=== PATIENT | female | born 1945 | race Caucasian/White ===

== ENCOUNTER 2017-01-05 10:34 | Emergency (ER) | payer OTHER ==
[~2017-01-05] VITALS: Ht 170.2 cm; Wt 96.0 kg
[~2017-01-05 10:34] MED LIST: AMLO5TAB22 PO; ASPI325T PO; CITRTAB16 PO; FEXO180 PO; HYDR-3533 PO; IBUP800T23 PO; META0.52 PO; MULT1TAB PO; OMEP20TA39 PO; TRAM50TA PO
[2017-01-05 10:44] VITALS: BP 149/88; PULSE 99; RESP 18; TEMP 99.6; O2SAT 97
--- NOTE | 2017-01-05 11:26 | PD ---
HPI . coughing x 4 days with fever Chief Complaint: Cold / Flu Symptoms Time Seen by Provider: 11:26 Travel History International Travel<30 days: No Contact w/Intl Traveler<30days: No Traveled to known affect area: No History of Present Illness HPI 71-year-old female here with complaints of coughing and fever for 4 days. She tells me that she has this every year. This time she is concerned that the fever is not going away. She is using aspirin which brings her temperature down , however it wears off within 6 hours and she has to take another dose. She admits to a dry cough. She does not have any associated sore throat, earache, rhinorrhea or shortness of breath. She denies any urinary symptoms. PFSH Past Medical History Hx Anticoagulant Therapy: Yes (ASA) Arthritis: Yes Asthma: Yes Autoimmune Disease: No Heart Rhythm Problems: No Cancer: No Cardiovascular Problems: Yes (HTN) High Cholesterol: No Chest Pain: No Congestive Heart Failure: No COPD: No Cerebrovascular Accident: No Diabetes: No Diminished Hearing: No Diverticulitis: Yes Deep Vein Thrombosis: Yes Endocrine: No Gastrointestinal Disorders: Yes (ACID REFLUX, HX OF DIVERTICULITIS, DIVERTICULOSIS) GERD: Yes Genitourinary: No Headaches: Yes Hepatitis: No Hiatal Hernia: No Hypertension: Yes Immune Disorder: No Implanted Vascular Access Dvce: Yes Kidney Stones: No Musculoskeletal: Yes (OSTEOARTHRITIS) 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) Psychiatric: No Reproductive: No Respiratory: Yes Migraines: No Renal Failure: No Seizures: No Sleep Apnea: No Thyroid Disease: No Ulcer: No Menopausal: Yes Tubal Ligation: Yes Past Surgical History Abdominal Surgery: Yes (CHOLECYSTECTOMY 1997,COLON RESECTION 2008) AICD: No Arteriovenous Shunt: No Body Medical Devices: TULIP VENA CAVA FILTER, L FOOT RECONSTRUCTION, L WRIST Cardiac Surgery: No Cholecystectomy: Yes Ear Surgery: No Endocrine Surgery: No Eye Surgery: No Genitourinary Surgery: Yes (RECTAL AND BLADDER REPAIR 2002) Gynecologic Surgery: Yes (TUBAL LIGATION 1973, HYSTERECTOMY 1979) Hysterectomy: Yes Insulin Pump: No Joint Replacement: Yes (LINDSEY KNEES) Oral Surgery: No Pacemaker: No Thoracic Surgery: No Other Surgery: Yes (RECTAL/BLADDER REPAIR) Social History Alcohol Use: Yes (BOURBON AND MARTINIS DAILY) Tobacco Use: No Substance Use: No Allergies-Medications (Allergen,Severity, Reaction): Coded Allergies: No Known Allergies (Verified , 01/05/17) Reported Meds & Prescriptions Reported Meds & Active Scripts Active Nebulizer Kit/Tubing/Mout (N/A) 1 Kit Kit 1 Kit .ROUTE DIRECTED Duoneb (Ipratropium-Albuterol Neb) 0.5-2.5 Mg/3 Ml Neb 1 Nebule INH Q6HR NEB Tessalon Perles (Benzonatate) 100 Mg Cap 100 Mg PO TID PRN Proair Hfa 8.5 GM Inh (Albuterol Sulfate) 90 Mcg/Act Aer 2 Puff INH Q6H PRN 108 mcg/actuation Prednisone 50 Mg Tab 50 Mg PO DAILY Reported Omeprazole 20 Mg Tab 20 Mg PO DAILY Centrum Silver (Multiple Vitamins W/ Minerals) 1 Tab 1 Tab PO DAILY Aspirin 325 Mg Tab 325 Mg PO Q6H Amlodipine (Amlodipine Besylate) 5 Mg Tab 5 Mg PO DAILY Review of Systems General / Constitutional: Positive: Fever Eyes: No: Visual changes HENT: No: Headaches Cardiovascular: No: Chest Pain or Discomfort Respiratory: Positive: Cough, No: Shortness of Breath Gastrointestinal: No: Abdominal Pain Genitourinary: No: Dysuria Musculoskeletal: No: Pain Skin: No Rash Neurologic: No: Weakness Psychiatric: No: Depression Endocrine: No: Polydipsia Hematologic/Lymphatic: No: Easy Bruising Physical Exam Narrative GENERAL: AAO x 3, no acute distress, Well-nourished, well-developed patient. SKIN: Warm and dry. No visible rashes or bruising. HEAD: Normocephalic and atraumatic. EYES: No scleral icterus. No injection or drainage. ENT: No nasal drainage noted. Mucous membranes pink. Airway patent. No posterior pharynx erythema, edema or exudates. NECK: Supple, trachea midline. No JVD. No lymphadenopathy CARDIOVASCULAR: Regular rate and rhythm without murmurs, gallops, or rubs. RESPIRATORY: Breath sounds equal bilaterally. No accessory muscle use. No rhonchi or rales. No audible wheeze. GASTROINTESTINAL: Abdomen soft, non-tender, nondistended. EXTREMITIES: No cyanosis or edema. BACK: Nontender without obvious deformity. No CVA tenderness. PSYCH: AAO x 3, normal affect. Data Data Last Documented VS Vital Signs Date Time Temp Pulse Resp B/P Pulse Ox O2 Delivery O2 Flow Rate FiO2 01/05/17 11:26 16 97 Room Air 01/05/17 10:44 99.6 99 149/88 Orders Influenzae A/B Antigen (01/05/17 11:30) Chest, Single Ap (01/05/17 11:30) Albuterol-Ipratropium Neb (Duoneb Neb) (01/05/17 11:45) Methylprednisolone So Succ Inj (Solumedr (01/05/17 11:45) MDM Medical Decision Making Medical Screen Exam Complete: Yes Emergency Medical Condition: Yes Medical Record Reviewed: Yes Differential Diagnosis Acute bronchitis, less likely influenza, less likely pneumonia Narrative Course 71-year-old female here with complaints of coughing and fever for 4 days. She tells me that she has this every year. This time she is concerned that the fever is not going away. She is using aspirin which brings her temperature down , however it wears off within 6 hours and she has to take another dose. She admits to a dry cough. She does not have any associated sore throat, earache, rhinorrhea or shortness of breath. She denies any urinary symptoms. Patient seen and examined. I believe she has a viral syndrome and bronchitis. Recommended chest x-ray and influenza swab. Both x-ray and influenza are negative. Patient given DuoNeb and Solu-Medrol in ED Recommend treatment for acute bronchitis with prednisone burst, Proventil inhaler and Tessalon Perles. Discussed that cough can linger for 6-8 weeks. Advise follow-up with her primary care provider Tylenol or Motrin as needed for pain and fever. Lungs after breathing treatment aerating better. Less frequency of cough. Patient verbalized feeling better. Patient verbalized understanding of instructions, questions were answered, and thanked me for their care. I advised them if their condition worsens, please return to the nearest emergency room for further care. Diagnosis Primary Impression: Acute bronchitis Qualified Code: J20.9 - Acute bronchitis, unspecified organism Additional Impression: Viral infection Patient Instructions: Acute Bronchitis (ED), General Instructions Additional Instructions: As we discussed the cough can last 6-8 weeks. Take medications as prescribed. If you are a smoker, try to quit. Follow up with your primary care provider. If you develop sudden onset or worsening of shortness or breath, please go to the nearest emergency room. Use Tylenol or Motrin as these for pain and fever. Med/Other Pt SpecificInfo: Prescription(s) given Scripts Nebulizer Kit/Tubing/Mout 1 Kit Kit #1 KIT .ROUTE DIRECTED Ref 0 Prov:Adrian Titus MD 01/05/17 Ipratropium-Albuterol Neb (Duoneb)0.5-2.5 Mg/3 Ml Neb1 Nebule INH Q6HR NEB # 120 NEBULE Ref 0 Prov:Adrian Titus MD 01/05/17 Benzonatate (Tessalon Perles)100 Mg [id number] Mg PO TID PRN (COUGH) #30 CAP Ref 0 Prov:Adrian Titus MD 01/05/17 Albuterol 8.5 GM Inh (Proair Hfa 8.5 GM Inh)90 Mcg/Act Aer2 Puff INH Q6H PRN ( SHORTNESS OF BREATH) #1 INHALER Ref 0 108 mcg/actuation Prov:Ardian Titus MD 01/05/17 Prednisone 50 Mg Tab50 Mg PO DAILY #5 TAB Prov:Adrian Titus MD 01/05/17 Disposition: 01 DISCHARGE HOME Condition: Stable Sakshi Kemp Jan 05, 2017 11:26
[2017-01-05] MEDS ORDERED: OMEP20TA PO (11:32)
[2017-01-05] MEDS ORDERED: AMLO5TAB2 PO (11:32)
[2017-01-05] MEDS ORDERED: CENTTAB PO (11:32)
[2017-01-05] MEDS ORDERED: ASPI325T PO (11:32)
[2017-01-05] MEDS ORDERED: methylPREDNISolone SOD SUCC 125 MG/2 ML VIAL IM ONE (11:45)
[2017-01-05] MEDS ORDERED: RESP: ALBUTEROL 2.5 MG/IPRATROPIUM 0.5 MG NEB (SCH) NEB ONE (11:45)
--- NOTE | 2017-01-05 11:51 | RADHPO ---
EXAM DATE/TIME: 01/05/2017 11:35 [facility] COMPARISON: CHEST SINGLE AP, October 13, 2014, 10:04. INDICATIONS : Cough, fever, and flu like symptoms. MEDICAL HISTORY : Asthma. SURGICAL HISTORY : None. ENCOUNTER: Initial ACUITY: 4 - 6 days PAIN SCORE: 0/10 LOCATION: Bilateral chest FINDINGS: A single view of the chest demonstrates the lungs to be symmetrically aerated without evidence of mas s, infiltrate or effusion. The cardiomediastinal contours are unremarkable. Osseous structures are intact. CONCLUSION: No acute disease. Kael Maldonado MD on January 05, 2017 at 11:48 Board Certified Radiologist. This report was verified electronically.
[2017-01-05] MEDS ORDERED: PRED50 PO (12:02)
[2017-01-05] MEDS ORDERED: BENZ100 PO (12:02)
[2017-01-05] MEDS ORDERED: ALBUAER3 INH (12:02)
[2017-01-05] MEDS ORDERED: NEBUKIT5 (12:17)
[2017-01-05] MEDS ORDERED: IPRASOL INH (12:17)
== END 2017-01-05 12:30 | disposition home or self-care (01) ==
LOC: PHED 10:34 → PHEFT 12:30
DX: J20.9 Acute bronchitis, unspecified (principal); I10 Essential (primary) hypertension; Z86.718 Personal history of other venous thrombosis and embolism; Z79.82 Long term (current) use of aspirin
CPT/HCPCS: 71010; 87804; 94664; 96372; 99283; J2930

== ENCOUNTER 2017-01-09 12:32 | Emergency (ER) | payer OTHER ==
[2017-01-09] VITALS (7 sets, daily range): BP systolic 115–144; BP diastolic 57–74; PULSE 89–109; RESP 16–18; TEMP 98.5; O2SAT 94–97
[~2017-01-09] VITALS: Ht 167.6 cm; Wt 96.1 kg
[~2017-01-09 12:32] MED LIST changes: +ALBUAER3 INH; +AMLO5TAB2 PO; -AMLO5TAB22 PO; +BENZ100 PO; +CENTTAB PO; -CITRTAB16 PO; -FEXO180 PO; -HYDR-3533 PO; -IBUP800T23 PO; +IPRASOL INH; -META0.52 PO; -MULT1TAB PO; +NEBUKIT5; +OMEP20TA PO; -OMEP20TA39 PO; +PRED50 PO; -TRAM50TA PO
[2017-01-09] MEDS ORDERED: SODIUM CHLORIDE 0.9% FLUSH 10 ML FLUSH IVF PRN (13:30)
[2017-01-09 13:39] LABS: AUTOMATED NEUTROPHIL # 5.5 TH/MM3 (1.8-7.7); BASOPHIL # 0.1 TH/MM3 (0-0.2); EOSINOPHIL % 0.3 % (0.0-4.0); HEMATOCRIT 38.8 % (35.0-46.0); HEMO FLAGS DIFF FINAL; LYMPH % 11.3 % (9.0-44.0); LYMPHOCYTE # 0.8 TH/MM3 (1.0-4.8); MEAN CELL VOLUME 88.7 FL (80.0-100.0); MEAN CORPUSCULAR HEMOGLOBIN 28.4 PG (27.0-34.0); MONO % 3.1 % (0.0-8.0); NEUT % 84.3 % (16.0-70.0); PLATELET COUNT 214 TH/MM3 (150-450); RED BLOOD COUNT 4.38 MIL/MM3 (4.00-5.30); RED CELL DISTRIBUTION WIDTH 14.7 % (11.6-17.2); WHITE BLOOD COUNT 6.6 TH/MM3 (4.0-11.0)
--- NOTE | 2017-01-09 13:40 | PD ---
HPI Chief Complaint: Cold / Flu Symptoms Time Seen by Provider: 13:15 Travel History International Travel<30 days: No Contact w/Intl Traveler<30days: No Traveled to known affect area: No History of Present Illness HPI Patient 71-year-old female presents emergency department for cough and shortness of breath. Patient states that she's been coughing like this for nearly 2 weeks. She was seen here last week and diagnosed bronchitis. Patient states is starting to get worse to the point where any time she lays down flat she feels shortness of breath. On clarifying this she states she has she starts coughing when she lays down flat. She denies any leg swelling and dyspnea on exertion or history of heart disease. Denies any chest pain. Patient states she's had a nonproductive cough. She states last time she was here she was given a DuoNeb which helped significantly she was discharged and she got a machine at home which she states does not work as well. She's not yet followed up with her primary care physician who is in [place]. She is next smoker for over 20 years. PFSH Past Medical History Hx Anticoagulant Therapy: Yes (ASA) Arthritis: Yes Asthma: Yes Autoimmune Disease: No Heart Rhythm Problems: No Cancer: No Cardiovascular Problems: Yes (HTN) High Cholesterol: No Chest Pain: No Congestive Heart Failure: No COPD: No Cerebrovascular Accident: No Diabetes: No Diminished Hearing: No Diverticulitis: Yes Deep Vein Thrombosis: Yes Endocrine: No Gastrointestinal Disorders: Yes (ACID REFLUX, HX OF DIVERTICULITIS, DIVERTICULOSIS) GERD: Yes Genitourinary: No Headaches: Yes Hepatitis: No Hiatal Hernia: No Hypertension: Yes Immune Disorder: No Implanted Vascular Access Dvce: Yes Kidney Stones: No Medical other: No Musculoskeletal: Yes (OSTEOARTHRITIS) 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) Psychiatric: No Reproductive: No Respiratory: Yes Migraines: No Renal Failure: No Seizures: No Sleep Apnea: No Thyroid Disease: No Ulcer: No Tetanus Vaccination: < 5 Years Influenza Vaccination: Yes ?: Not Menopausal: Yes Tubal Ligation: Yes Past Surgical History Abdominal Surgery: Yes (CHOLECYSTECTOMY 1997,COLON RESECTION 2008) AICD: No Arteriovenous Shunt: No Body Medical Devices: TULIP VENA CAVA FILTER, L FOOT RECONSTRUCTION, L WRIST Cardiac Surgery: No Cholecystectomy: Yes Ear Surgery: No Endocrine Surgery: No Eye Surgery: No Genitourinary Surgery: Yes (RECTAL AND BLADDER REPAIR 2002) Gynecologic Surgery: Yes (TUBAL LIGATION 1973, HYSTERECTOMY 1979) Hysterectomy: Yes Insulin Pump: No Joint Replacement: Yes (LINDSEY KNEES) Neurologic Surgery: No Oral Surgery: No Pacemaker: No Thoracic Surgery: No Other Surgery: Yes (RECTAL/BLADDER REPAIR) Social History Alcohol Use: Yes (BOURBON AND MARTINIS DAILY) Tobacco Use: No (quit jul-1986 smoked 1 ppd) Substance Use: No Allergies-Medications (Allergen,Severity, Reaction): Coded Allergies: No Known Allergies (Verified , 01/09/17) Reported Meds & Prescriptions Reported Meds & Active Scripts Active Azithromycin 250 Mg Tab 250 Mg PO DIRECTED Take 2 tabs (500 mg) on day 1 then 1 tab daily x 4 days. Hydrocodone-Homatropine Liq 5-1.5 Mg/5 Ml Syrp 5 Ml PO Q4H PRN Duoneb (Ipratropium-Albuterol Neb) 0.5-2.5 Mg/3 Ml Neb 1 Nebule INH Q6HR NEB Tessalon Perles (Benzonatate) 100 Mg Cap 100 Mg PO TID PRN Proair Hfa 8.5 GM Inh (Albuterol Sulfate) 90 Mcg/Act Aer 2 Puff INH Q6H PRN 108 mcg/actuation Prednisone 50 Mg Tab 50 Mg PO DAILY Reported Omeprazole 20 Mg Tab 20 Mg PO DAILY Centrum Silver (Multiple Vitamins W/ Minerals) 1 Tab 1 Tab PO DAILY Aspirin 325 Mg Tab 325 Mg PO DAILY Amlodipine (Amlodipine Besylate) 5 Mg Tab 5 Mg PO DAILY Review of Systems Except as stated in HPI: all other systems reviewed are Neg Physical Exam Narrative GENERAL: Well-developed well-nourished exhibiting dry cough but in no obvious distress. SKIN: Focused skin assessment warm/dry. HEAD: Atraumatic. Normocephalic. EYES: Pupils equal and round. No scleral icterus. No injection or drainage. ENT: No nasal bleeding or discharge. Mucous membranes pink and moist. TMs clear bilaterally. NECK: Trachea midline. No JVD. CARDIOVASCULAR: Mildly tachycardic with regular rhythm. No murmur appreciated. RESPIRATORY: No accessory muscle use. Rhonchorous breath sounds. No wheezing no rales. Breath sounds equal bilaterally. GASTROINTESTINAL: Abdomen soft, non-tender, nondistended. Hepatic and splenic margins not palpable. MUSCULOSKELETAL: No obvious deformities. No clubbing. No cyanosis. No edema. NEUROLOGICAL: Awake and alert. No obvious cranial nerve deficits. Motor grossly within normal limits. Normal speech. PSYCHIATRIC: Appropriate mood and affect; insight and judgment normal. Data Data Last Documented VS Vital Signs Date Time Temp Pulse Resp B/P Pulse Ox O2 Delivery O2 Flow Rate FiO2 01/09/17 16:32 93 16 128/62 96 01/09/17 15:15 Room Air 01/09/17 13:48 2 01/09/17 12:38 98.5 Orders Electrocardiogram (01/09/17 13:23) B-Type Natriuretic Peptide (01/09/17 13:23) Ckmb (Isoenzyme) Profile (01/09/17 13:23) Complete Blood Count With Diff (01/09/17 13:23) Comprehensive Metabolic Panel (01/09/17 13:23) Magnesium (Mg) (01/09/17 13:23) Prothrombin Time / Inr (Pt) (01/09/17 13:23) Act Partial Throm Time (Ptt) (01/09/17 13:23) Troponin I (01/09/17 13:23) Ecg Monitoring (01/09/17 13:23) Bilateral Bp Monitoring (01/09/17 13:23) Iv Access Insert/Monitor (01/09/17 13:23) Oximetry (01/09/17 13:23) Oxygen Administration (01/09/17 13:23) Sodium Chloride 0.9% Flush (Ns Flush) (01/09/17 13:30) Chest, Pa & Lat (01/09/17 13:23) Albuterol-Ipratropium Neb (Duoneb Neb) (01/09/17 14:00) Labs Laboratory Tests Test 01/09/17 13:25 White Blood Count 6.6 TH/MM3 Red Blood Count 4.38 MIL/MM3 Hemoglobin 12.4 GM/DL Hematocrit 38.8 % Mean Corpuscular Volume 88.7 FL Mean Corpuscular Hemoglobin 28.4 PG Mean Corpuscular Hemoglobin 32.0 % Concent Red Cell Distribution Width 14.7 % Platelet Count 214 TH/MM3 Mean Platelet Volume 8.7 FL Neutrophils (%) (Auto) 84.3 % Lymphocytes (%) (Auto) 11.3 % Monocytes (%) (Auto) 3.1 % Eosinophils (%) (Auto) 0.3 % Basophils (%) (Auto) 1.0 % Neutrophils # (Auto) 5.5 TH/MM3 Lymphocytes # (Auto) 0.8 TH/MM3 Monocytes # (Auto) 0.2 TH/MM3 Eosinophils # (Auto) 0.0 TH/MM3 Basophils # (Auto) 0.1 TH/MM3 CBC Comment DIFF FINAL Differential Comment Prothrombin Time 10.3 SEC Prothromb Time International 0.9 RATIO Ratio Activated Partial 24.5 SEC Thromboplast Time Sodium Level 141 MEQ/L Potassium Level 4.0 MEQ/L Chloride Level 108 MEQ/L Carbon Dioxide Level 20.2 MEQ/L Anion Gap 13 MEQ/L Blood Urea Nitrogen 18 MG/DL Creatinine 1.00 MG/DL Estimat Glomerular Filtration 54 ML/MIN Rate Random Glucose 223 MG/DL Calcium Level 8.7 MG/DL Magnesium Level 2.1 MG/DL Total Bilirubin 0.5 MG/DL Aspartate Amino Transf 15 U/L (AST/SGOT) Alanine Aminotransferase 28 U/L (ALT/SGPT) Alkaline Phosphatase 77 U/L Total Creatine Kinase 80 U/L Troponin I LESS THAN 0.02 NG/ML B-Type Natriuretic Peptide 10 PG/ML Total Protein 6.9 GM/DL Albumin 3.4 GM/DL [facility] Medical Decision Making Medical Screen Exam Complete: Yes Emergency Medical Condition: Yes Interpretation(s) EKG shows sinus tachycardia rate of 102, normal axis and normal R-wave progression. No concerning ST T changes. Intervals otherwise within normal limits. This normal EKG except for rate. Differential Diagnosis Bronchitis, PNA< cough, COPD. Narrative Course Duoneb given, patient feeling much better. HR improving. She appears well. Initial workup CXR, CBC, CMP, troponin all reassuring. Patient dry cough is supressed after duoneb. She is stable for discharge. Will prescribe azithromycin and hycodan. Stable for discharge. Follow up with pcp and return to ED criteria discussed. Diagnosis Primary Impression: Acute bronchitis Qualified Code: J20.9 - Acute bronchitis, unspecified organism Scripts Azithromycin 250 Mg [id number] Mg PO DIRECTED #6 TAB Ref 0 Take 2 tabs (500 mg) on day 1 then 1 tab daily x 4 days. Prov:Olivier Lee MD 01/09/17 Hydrocodone-Homatropine Liq 5-1.5 Mg/5 Ml Syrp5 Ml PO Q4H PRN (COUGH) #100 ML Ref 0 Prov:Olivier Lee MD 01/09/17 Disposition: 01 DISCHARGE HOME Condition: Stable Olivier Lee MD Jan 09, 2017 13:40
[2017-01-09 13:46] LABS: CHLORIDE 108 MEQ/L (98-107); SODIUM (NA) 141 MEQ/L (136-145)
[2017-01-09 13:51] LABS: ANION GAP 13 MEQ/L (5-15); APTT (PATIENT) 24.5 SEC (24.3-30.1); BICARBONATE 20.2 MEQ/L (21.0-32.0); BLOOD UREA NITROGEN 18 MG/DL (7-18); INTERNATIONAL NORMALIZED RATIO 0.9 RATIO; MAGNESIUM 2.1 MG/DL (1.5-2.5); PROTHROMBIN TIME - PATIENT 10.3 SEC (9.8-11.6)
[2017-01-09 13:54] LABS: ALT (GPT) 28 U/L (10-53); AST (GOT) 15 U/L (15-37); GLOMERULAR FILTRATION RATE 54 ML/MIN (>89)
[2017-01-09 13:56] LABS: TOTAL BILIRUBIN ADULT 0.5 MG/DL (0.2-1.0)
[2017-01-09 13:57] LABS: ALKALINE PHOSPHATASE 77 U/L (45-117)
[2017-01-09] MEDS ORDERED: RESP: ALBUTEROL 2.5 MG/IPRATROPIUM 0.5 MG NEB (SCH) NEB ONE (14:00)
[2017-01-09 14:02] LABS: CREATINE KINASE 80 U/L (26-192)
--- NOTE | 2017-01-09 14:42 | RADHPO ---
EXAM DATE/TIME: 01/09/2017 14:27 [facility] COMPARISON: CHEST PA & LAT, October 08, 2014, 11:05. INDICATIONS : Short of breath, cough. MEDICAL HISTORY : Bronchitis SURGICAL HISTORY : None. ENCOUNTER: Initial ACUITY: 1 week PAIN SCORE: 0/10 LOCATION: Bilateral chest FINDINGS: Total shoulder arthroplasty is seen on the left. The lungs are clear. Heart and pulmonary vascularit y are normal. Portions of the bony skeleton visualized are unremarkable. CONCLUSION: Negative chest for acute disease. Eron Huffman MD FACR on January 09, 2017 at 14:36 Board Certified Radiologist. This report was verified electronically.
[2017-01-09] MEDS ORDERED: HYDR5SYP10 PO (15:04)
[2017-01-09] MEDS ORDERED: AZIT250T3 PO (15:13)
--- NOTE | 2017-01-10 22:08 | EKG ---
Date Performed: 01/09/2017 Time Performed: 13:32:38 PTAGE: 71 years EKG: Sinus tachycardia Since PREVIOUS TRACING , no significant change noted Normal ECG except for rate PREVIOUS TRACIN 02/03/2014 11.10 DOCTOR: Corina Smith Interpretating Date/Time 01/10/2017 22:06:34
== END 2017-01-09 16:34 | disposition home or self-care (01) ==
LOC: PHED 12:32
DX: J20.9 Acute bronchitis, unspecified (principal); I10 Essential (primary) hypertension; Z79.899 Other long term (current) drug therapy; Z87.891 Personal history of nicotine dependence
CPT/HCPCS: 71020; 80053; 82550; 83735; 83880; 84484; 85025; 85610; 85730; 93005; 94664

== ENCOUNTER 2017-11-13 15:34 | Emergency (ER) | payer OTHER ==
[~2017-11-13] VITALS: Ht 167.6 cm; Wt 91.0 kg
[~2017-11-13 15:34] MED LIST changes: +ASPI-183 PO; -ASPI325T PO; +AZIT250T3 PO; +HYDR5SYP10 PO; -NEBUKIT5; -OMEP20TA PO; +OMEP20TA93 PO
[2017-11-13 15:56] VITALS: BP 136/96; PULSE 82; RESP 16; TEMP 98.3; O2SAT 98
--- NOTE | 2017-11-13 17:27 | PD ---
HPI Chief Complaint: Fatigue Time Seen by Provider: 17:13 Travel History International Travel<30 days: No Contact w/Intl Traveler<30days: No Traveled to known affect area: No History of Present Illness HPI 72yo F with PMH of asthma here with c/o not feeling well for 1 month. Said she has been having cough, nasal congestion, nonbloody diarrhea and sleeping more. Pt feels like she cant hear in her ears as well. Said she felt like she was wheezing today. Denies any fever, chest pain, sob, n/v, abdominal pain, focal weakness or numbness. PFSH Past Medical History Hx Anticoagulant Therapy: Yes (ASA) Arthritis: Yes Asthma: Yes Autoimmune Disease: No Heart Rhythm Problems: No Cancer: No Cardiovascular Problems: Yes (HTN) High Cholesterol: No Chest Pain: No Congestive Heart Failure: No COPD: No Cerebrovascular Accident: No Diabetes: No Patient Takes Glucophage: No Diminished Hearing: No Diverticulitis: Yes Deep Vein Thrombosis: Yes Endocrine: No Gastrointestinal Disorders: Yes (ACID REFLUX, HX OF DIVERTICULITIS, DIVERTICULOSIS) GERD: Yes Genitourinary: No Headaches: Yes Hepatitis: No Hiatal Hernia: No Hypertension: Yes Immune Disorder: No Implanted Vascular Access Dvce: Yes Kidney Stones: No Medical other: No Musculoskeletal: Yes (OSTEOARTHRITIS) 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) Psychiatric: No Reproductive: No Respiratory: Yes Migraines: No Renal Failure: No Seizures: No Sleep Apnea: No Thyroid Disease: No Ulcer: No Tetanus Vaccination: Unknown ?: Not Menopausal: Yes Tubal Ligation: Yes Past Surgical History Abdominal Surgery: Yes (CHOLECYSTECTOMY 1997,COLON RESECTION 2008) AICD: No Arteriovenous Shunt: No Body Medical Devices: TULIP VENA CAVA FILTER, L FOOT RECONSTRUCTION, L WRIST Cardiac Surgery: No Cholecystectomy: Yes Ear Surgery: No Endocrine Surgery: No Eye Surgery: No Genitourinary Surgery: Yes (RECTAL AND BLADDER REPAIR 2002) Gynecologic Surgery: Yes (TUBAL LIGATION 1973, HYSTERECTOMY 1979) Hysterectomy: Yes Insulin Pump: No Joint Replacement: Yes (LINDSEY KNEES) Neurologic Surgery: No Oral Surgery: No Pacemaker: No Thoracic Surgery: No Other Surgery: Yes (RECTAL/BLADDER REPAIR) Social History Alcohol Use: Yes (BOURBON AND MARTINIS DAILY) Tobacco Use: No (quit jul-1986 smoked 1 ppd) Substance Use: No Allergies-Medications (Allergen,Severity, Reaction): Coded Allergies: No Known Allergies (Verified Adverse Reaction, Unknown, 11/13/17) Reported Meds & Prescriptions Reported Meds & Active Scripts Active Reported Aspirin 325 Mg Tab 650 Mg PO BID Zinc (Zinc Gluconate) 50 Mg Tab 1 Tab PO ASDIRECTED Centrum Silver Women Tablet (Multivit-Min/Iron/Folic/Lutein) 8 Mg Iron-400 Mcg- 300 Mcg Tablet 1 Tab PO QOD Omeprazole 20 Mg Tab 20 Mg PO DAILY Amlodipine (Amlodipine Besylate) 5 Mg Tab 5 Mg PO DAILY Review of Systems Except as stated in HPI: all other systems reviewed are Neg Physical Exam Narrative GENERAL: 72yo F not in distress. SKIN: Focused skin assessment warm/dry. HEAD: Atraumatic. Normocephalic. EYES: Pupils equal and round. No scleral icterus. No injection or drainage. ENT: Throat: Clear. Uvula midline. No tonsillar exudate. TM wnl bilaterally. NECK: Trachea midline. No JVD. CARDIOVASCULAR: Regular rate and rhythm. No murmur appreciated. RESPIRATORY: No accessory muscle use. Clear to auscultation. Breath sounds equal bilaterally. GASTROINTESTINAL: Abdomen soft, non-tender, nondistended. MUSCULOSKELETAL: No obvious deformities. No clubbing. No cyanosis. No edema. NEUROLOGICAL: Awake and alert. No obvious cranial nerve deficits. Motor grossly within normal limits. Normal speech. PSYCHIATRIC: Appropriate mood and affect; insight and judgment normal. Data Data Last Documented VS Vital Signs Date Time Temp Pulse Resp B/P (MAP) Pulse Ox O2 Delivery O2 Flow Rate FiO2 11/13/17 17:13 15 98 Room Air 11/13/17 15:56 98.3 82 136/96 (109) Orders Orders Influenzae A/B Antigen (11/13/17 17:21) Urinalysis - C+S If Indicated (11/13/17 17:21) Complete Blood Count With Diff (11/13/17 17:21) Basic Metabolic Panel (Bmp) (11/13/17 17:21) Thyroid Stimulating Hormone (11/13/17 17:21) Magnesium (Mg) (11/13/17 17:21) Chest, Pa & Lat (11/13/17 ) Ed Discharge Order (11/13/17 18:42) Labs Laboratory Tests Test 11/13/17 17:30 11/13/17 17:40 White Blood Count 8.3 TH/MM3 Red Blood Count 4.28 MIL/MM3 Hemoglobin 12.4 GM/DL Hematocrit 38.9 % Mean Corpuscular Volume 90.9 FL Mean Corpuscular Hemoglobin 29.1 PG Mean Corpuscular Hemoglobin Concent 32.0 % Red Cell Distribution Width 14.4 % Platelet Count 239 TH/MM3 Mean Platelet Volume 8.6 FL Neutrophils (%) (Auto) 62.6 % Lymphocytes (%) (Auto) 25.7 % Monocytes (%) (Auto) 7.8 % Eosinophils (%) (Auto) 3.2 % Basophils (%) (Auto) 0.7 % Neutrophils # (Auto) 5.2 TH/MM3 Lymphocytes # (Auto) 2.1 TH/MM3 Monocytes # (Auto) 0.6 TH/MM3 Eosinophils # (Auto) 0.3 TH/MM3 Basophils # (Auto) 0.1 TH/MM3 CBC Comment DIFF FINAL Differential Comment Blood Urea Nitrogen 13 MG/DL Creatinine 0.69 MG/DL Random Glucose 93 MG/DL Calcium Level 9.1 MG/DL Magnesium Level 2.2 MG/DL Sodium Level 141 MEQ/L Potassium Level 3.9 MEQ/L Chloride Level 107 MEQ/L Carbon Dioxide Level 27.2 MEQ/L Anion Gap 7 MEQ/L Estimat Glomerular Filtration Rate 83 ML/MIN Thyroid Stimulating Hormone 3rd Gen 0.775 uIU/ML Urine Color YELLOW Urine Turbidity CLEAR Urine pH 5.5 Urine Specific [place] 1.010 Urine Protein NEG mg/dL Urine Glucose (UA) NEG mg/dL Urine Ketones NEG mg/dL Urine Occult Blood TRACE Urine Nitrite NEG Urine Bilirubin NEG Urine Leukocyte Esterase NEG Urine RBC 0-3 /hpf Urine Squamous Epithelial Cells 0-5 /hpf Microscopic Urinalysis Comment CULT NOT INDICATED MDM Medical Decision Making Medical Screen Exam Complete: Yes Emergency Medical Condition: Yes Differential Diagnosis URI vs. influenza vs. pneumonia vs. UTI vs. hypothyroidism Narrative Course 72yo F here stating she has not been feeling well for a month. Pt has flu like symptoms and fatigue despite sleeping for a long time. Said she felt like she was wheezing but not wheezing on exam. Offered nebulizer treatment but she said she does not want any now and has it at home. Labs reviewed, no leukocytosis. H/H normal. BMP unremarkable. TSH normal. UA negative. Influenza negative. CXR negative. Vital signs normal. Pt reevaluated at bedside and said she still cant hear well but there is no cerumen impaction. Will have pt follow up with ENT for further evaluation. Pt is well appearing and denies any chest pain or sob. Pt has been having symptoms for 1 month and no acute findings today. Will have pt follow up with primary care for further evaluation if needed. Diagnosis Primary Impression: Fatigue Qualified Codes: R53.83 - Other fatigue Referrals: Cisco Barros MD call for appointment Decreased hearing in bilateral ears Patient Instructions: General Instructions Departure Forms: Tests/Procedures Additional Instructions: Please follow up with [facility] for further evaluation if needed. Please follow up with ENT as outpatient if you have still having hearing problems. Return to the ED if symptoms worsen. Med/Other Pt SpecificInfo: No Change to Meds Disposition: 01 DISCHARGE HOME Condition: Stable MadhuriSweetie Nov 13, 2017 17:27
[2017-11-13 17:49] LABS: AUTOMATED NEUTROPHIL # 5.2 TH/MM3 (1.8-7.7); BASOPHIL # 0.1 TH/MM3 (0-0.2); BASOPHIL % 0.7 % (0.0-2.0); EOSINOPHIL # 0.3 TH/MM3 (0-0.4); EOSINOPHIL % 3.2 % (0.0-4.0); HEMATOCRIT 38.9 % (35.0-46.0); HEMOGLOBIN 12.4 GM/DL (11.6-15.3); LYMPH % 25.7 % (9.0-44.0); LYMPHOCYTE # 2.1 TH/MM3 (1.0-4.8); MEAN CELL VOLUME 90.9 FL (80.0-100.0); MEAN CORPUSCULAR HEMOGLOBIN 29.1 PG (27.0-34.0); MEAN PLATELET VOLUME 8.6 FL (7.0-11.0); MONO % 7.8 % (0.0-8.0); MONOCYTE # 0.6 TH/MM3 (0-0.9); NEUT % 62.6 % (16.0-70.0); PLATELET COUNT 239 TH/MM3 (150-450); RED BLOOD COUNT 4.28 MIL/MM3 (4.00-5.30); RED CELL DISTRIBUTION WIDTH 14.4 % (11.6-17.2); WHITE BLOOD COUNT 8.3 TH/MM3 (4.0-11.0)
[2017-11-13 18:00] LABS: BICARBONATE 27.2 MEQ/L (21.0-32.0); CALCIUM 9.1 MG/DL (8.5-10.1); MAGNESIUM 2.2 MG/DL (1.5-2.5)
[2017-11-13] MEDS ORDERED: MULT1TAB61 PO (18:01)
[2017-11-13] MEDS ORDERED: CHEL50TA PO (18:01)
[2017-11-13] MEDS ORDERED: ASPI-183 PO (18:01)
[2017-11-13 18:04] LABS: CREATININE 0.69 MG/DL (0.50-1.00)
--- NOTE | 2017-11-13 18:04 | RADRPT ---
EXAM DATE/TIME: 11/13/2017 17:54 [facility] COMPARISON: CHEST PA & LAT, January 09, 2017, 14:27. INDICATIONS : Cough. MEDICAL HISTORY : Hypertension. Asthma. SURGICAL HISTORY : None. ENCOUNTER: Initial ACUITY: 1 month PAIN SCORE: 0/10 LOCATION: Bilateral chest FINDINGS: PA and lateral views of the chest demonstrate the lungs to be symmetrically aerated without evidence of mass, infiltrate or effusion. The cardiomediastinal contours are unremarkable. Osseous structure s are intact. The patient is status post left shoulder arthroplasty. There is an inferior vena caval filter in place. CONCLUSION: No acute disease. There is no evidence of pneumonia. Cisco Dolan MD on November 13, 2017 at 18:01 Board Certified Radiologist. This report was verified electronically.
[2017-11-13 18:09] LABS: BILIRUBIN, URINE NEG (NEG); BLOOD, URINE TRACE (NEG); GLUCOSE,URINE NEG (NEG); KETONE, URINE NEG (NEG); NITRITE,URINE NEG (NEG); PH, URINE 5.5 (5.0-8.5); URINE LEUKOCYTE ESTERASE NEG (NEG)
[2017-11-13 18:16] LABS: RBC, URINE 0-3 /hpf (0-3); SQUAMOUS EPITHELIAL CELL URINE 0-5 /hpf (0-5); URINE COLOR YELLOW (YELLW/STRAW)
== END 2017-11-13 18:54 | disposition home or self-care (01) ==
LOC: PHED 15:34 → PHEFT 18:54
DX: R53.83 Other fatigue (principal); I10 Essential (primary) hypertension; J45.909 Unspecified asthma, uncomplicated; M19.90 Unspecified osteoarthritis, unspecified site; Z86.718 Personal history of other venous thrombosis and embolism; K21.9 Gastro-esophageal reflux disease without esophagitis; Z87.891 Personal history of nicotine dependence; Z79.82 Long term (current) use of aspirin; Z79.899 Other long term (current) drug therapy
CPT/HCPCS: 71046; 80048; 81001; 83735; 84443; 85025; 87804; 99284